=== PATIENT | male | born 1945 | race Caucasian/White ===

== ENCOUNTER → 2020-06-29 13:51 | Outpatient (BNVA) | payer MEDICARE, OTHER, SELFPAY | PROVIDERS: PCP Family Medicine; Visit Provider Specialist | DX: G40.219 Localization-related (focal) (partial) symptomatic epilepsy and epileptic syndromes with complex partial seizures, intractable, without status epilepticus (principal); Z87.891 Personal history of nicotine dependence | CPT/HCPCS: 99205; G2212 ==

== ENCOUNTER 2020-11-22 08:25 | Outpatient (CLI) | payer MEDICARE, OTHER, SELFPAY ==
--- NOTE | 2020-11-22 09:30 | MR_ITS ---
WS: [id number] MRI HEAD WITH CONTRAST TECHNIQUE: Sagittal T1, T2 axial, T2 axial FLAIR, axial susceptibility weighted imaging, axial diffus ion weighted images, and coronal T2 images were obtained. Pre and post-T1 axial and post T1 coronal i mages. ADC and FSPGR images. CLINICAL INFORMATION: R56.9 - Unspecified convulsions COMPARISON: None. FINDINGS: No evidence of restricted diffusion to suggest acute ischemia. Ventricular system and basal cisterns are patent. Moderate small vessel changes. Moderate parenchymal volume loss. 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 Normal posterior fossa. Normal vasc ular flow voids at the skull base. No extra-axial fluid collections. No evidence of mass or mass effe ct. Mild mucosal thickening in the paranasal sinuses. Mastoid air cells are well aerated. No hemosiderin on the susceptibly weighted images. Normal optic chiasm and pituitary infundibulum. Mild symmetric atrophy temporal lobes and hippocampal formationsNormal cavernous sinuses and Meckel's cave. No abnormal intracranial enhancement. Normal dural venous sinuses. Normal posterior nasopharynx. MR/MR head wo/w con [id number] IMPRESSION: 1. No evidence of restricted diffusion to suggest acute ischemia. 2. Moderate small vessel changes with moderate parenchymal volume loss. 3. No abnormal gadolinium enhancement. Normal dural venous sinuses. 4. No hemosiderin on the susceptibly weighted images. 5. Mild symmetric atrophy temporal lobes and hippocampal formations. Normal si gnal in the mesial temporal lobes. 6. 2 or 3 tiny chronic lacunar infarcts in the right parietal and temporal per iventricular white matter.
== END 2020-11-22 08:26 | disposition home or self-care (01) ==
LOC: RADSHAW 08:27
PROVIDERS: PCP Family Medicine; Visit Provider Specialist
DX: G40.219 Localization-related (focal) (partial) symptomatic epilepsy and epileptic syndromes with complex partial seizures, intractable, without status epilepticus (principal); G40.119 Localization-related (focal) (partial) symptomatic epilepsy and epileptic syndromes with simple partial seizures, intractable, without status epilepticus; Z87.891 Personal history of nicotine dependence
CPT/HCPCS: 70553; 95816; A9579

== ENCOUNTER → 2020-12-07 09:51 | Outpatient (BNVA) | payer MEDICARE, OTHER, SELFPAY | PROVIDERS: PCP Family Medicine; Visit Provider Specialist | DX: G40.219 Localization-related (focal) (partial) symptomatic epilepsy and epileptic syndromes with complex partial seizures, intractable, without status epilepticus (principal); Z87.891 Personal history of nicotine dependence | CPT/HCPCS: 99214 ==